=== PATIENT | male | born 1965 | race Hispanic/Latino ===

== ENCOUNTER 2022-11-14 13:07 | Emergency (ER) | payer BC, OTHER ==
[~2022-11-14] VITALS: Ht 165.1 cm; Wt 85.3 kg
[2022-11-14 13:47] LABS: HEMATOCRIT 37.9 % (42-54); MEAN CORPUSCULAR HEMOGLOBIN 31.1 pg (27.0-33.0); MEAN CORPUSCULAR HGB CONC 35.1 g/dL (32.0-36.0); MEAN CORPUSCULAR VOLUME 88.6 fL (79-99); PLATELET COUNT (AUTO) 220 K/uL (130-400); RED BLOOD CELL COUNT(AUTO) 4.28 MIL/uL (4.50-6.20); RED CELL DISTRIBUTION WIDTH 12.7 % (11.0-15.5); WHITE BLOOD COUNT (AUTO) 8.8 K/uL (4.8-10.8)
[2022-11-14 13:57] LABS: CREATININE 1.4 mg/dL (0.5-1.5); POTASSIUM 4.8 mmol/L (3.5-5.1)
[2022-11-14 14:01] LABS: ALBUMIN 3.9 g/dL (3.5-5.0)
[2022-11-14 14:53] LABS: BASOPHILS % (AUTO) 0.6 % (0.0-5.0); EOSINOPHILS % (AUTO) 5.2 % (0.0-8.0); LYMPHOCYTES % (AUTO) 37.9 % (21.0-51.0); MONOCYTES % (AUTO) 5.4 % (3.0-13.0); NEUTROPHILS % (AUTO) 50.7 % (40.0-77.0)
[2022-11-14 16:41] VITALS: BP 114/74
[2022-11-14] MEDS ORDERED: DICL20GE TP (18:05)
== END 2022-11-14 18:28 | disposition home or self-care (01) ==
LOC: EDH 13:07
DX: M25.519 Pain in unspecified shoulder (principal); M79.10 Myalgia, unspecified site; E11.9 Type 2 diabetes mellitus without complications; E78.00 Pure hypercholesterolemia, unspecified; I10 Essential (primary) hypertension; Z88.8 Allergy status to other drugs, medicaments and biological substances; Z95.1 Presence of aortocoronary bypass graft
CPT/HCPCS: 36415; 80053; 84484; 85025; 93005

== ENCOUNTER → 2022-11-24 | Outpatient (CLI) | payer OTHER ==
[~2022-11-24] MED LIST: DICL20GE TP
[2022-11-24 13:19] LABS: CREATININE 1.5 mg/dL (0.5-1.5); POTASSIUM 4.4 mmol/L (3.5-5.1)
== END | disposition home or self-care (01) ==
LOC: LAB 10:12
PROVIDERS: ATTEND Internal Medicine Cardiovascular Disease
DX: R07.9 Chest pain, unspecified (principal)
CPT/HCPCS: 36415; 80048; 80061

== ENCOUNTER → 2022-11-28 | Outpatient (CLI) | payer OTHER ==
[~2022-11-28] MED LIST changes: +ASPI-1197 PO; +ATOR40TA69 PO; +EZET10TA48 PO; +HYDR25TA PO; +LEVO50CA4 PO; +LOSA100T59 PO; +LOSA50TA64 PO; +METF-446 PO; +METO50TA18 PO; +MULT-1192 PO; +OMEP40CA21 PO; +REGADENOSON 0.4 MG/5 ML PF SYG IVP SCH; +SEMA2PEN SQ
== END | disposition home or self-care (01) ==
LOC: SHCH 09:03
PROVIDERS: ATTEND Internal Medicine Cardiovascular Disease
DX: R07.9 Chest pain, unspecified (principal); I25.9 Chronic ischemic heart disease, unspecified
CPT/HCPCS: 78452; 93017; J2785; A9500 ×2; 96374

== ENCOUNTER 2022-12-23 14:03 | Observation (INO) | payer OTHER ==
[~2022-12-23] VITALS: Ht 165.1 cm; Wt 86.5 kg
[~2022-12-23 14:03] MED LIST changes: -ASPI-1197 PO; -ATOR40TA69 PO; -EZET10TA48 PO; -HYDR25TA PO; -LEVO50CA4 PO; -LOSA100T59 PO; -LOSA50TA64 PO; -METF-446 PO; -METO50TA18 PO; -MULT-1192 PO; -OMEP40CA21 PO; -REGADENOSON 0.4 MG/5 ML PF SYG IVP SCH; -SEMA2PEN SQ
[2022-12-23 15:41] LABS: BASOPHILS % (AUTO) 0.5 % (0.0-5.0); EOSINOPHILS % (AUTO) 5.3 % (0.0-8.0); HEMATOCRIT 38.2 % (42-54); LYMPHOCYTES % (AUTO) 32.3 % (21.0-51.0); MEAN CORPUSCULAR HEMOGLOBIN 30.9 pg (27.0-33.0); MEAN CORPUSCULAR HGB CONC 35.1 g/dL (32.0-36.0); MEAN CORPUSCULAR VOLUME 88.2 fL (79-99); MONOCYTES % (AUTO) 6.4 % (3.0-13.0); NEUTROPHILS % (AUTO) 55.2 % (40.0-77.0); PLATELET COUNT (AUTO) 245 K/uL (130-400); RED BLOOD CELL COUNT(AUTO) 4.33 MIL/uL (4.50-6.20); RED CELL DISTRIBUTION WIDTH 12.4 % (11.0-15.5); WHITE BLOOD COUNT (AUTO) 7.8 K/uL (4.8-10.8)
[2022-12-23 15:51] LABS: APPEARANCE,URINE CLEAR (CLEAR); BILIRUBIN,URINE NEGATIVE (NEGATIVE); COLOR,URINE YELLOW (YELLOW); GLUCOSE, URINE (UA) NEGATIVE (NEGATIVE); KETONES,URINE NEGATIVE (NEGATIVE); LEUKOCYTE ESTERASE ,URINE NEGATIVE Leu/uL (NEGATIVE); NITRATE,URINE NEGATIVE (NEGATIVE); OCCULT BLOOD,URINE NEGATIVE (NEGATIVE); PROTEIN,URINE 20 mg/dL (NEGATIVE); UROBILINOGEN,URINE 0.2 mg/dL (0.2-1.0)
[2022-12-23 15:54] LABS: BACTERIA,URINE RARE /HPF (None Seen); MUCUS,URINE RARE LPF (None Seen); OTHER CASTS, URINE 1 /LPF (None Seen); RBC,URINE 0-1 /HPF (0-1); WBC,URINE 0-1 /HPF (0-1)
[2022-12-23 15:59] LABS: AMPHET/METH SCREEN,URINE NEGATIVE (NEGATIVE); BARBITURATE SCREEN, URINE NEGATIVE (NEGATIVE); BENZODIAZEPINES SCREEN,URINE NEGATIVE (NEGATIVE); CANNABINOID SCREEN,URINE NEGATIVE (NEGATIVE); COCAINE SCREEN,URINE NEGATIVE (NEGATIVE); OPIATE SCREEN,URINE NEGATIVE (NEGATIVE); PHENCYCLIDINE SCREEN,URINE NEGATIVE (NEGATIVE)
[2022-12-23 16:00] LABS: CREATININE 2.3 mg/dL (0.5-1.5); POTASSIUM 4.3 mmol/L (3.5-5.1)
[2022-12-23 16:10] LABS: ALBUMIN 4.1 g/dL (3.5-5.0); TOTAL PROTEIN, SERUM 7.6 g/dL (6.0-8.3)
[2022-12-23] MEDS ORDERED: 0.9%NACL 1000ML 1,000 ML IV ONE (17:00)
[2022-12-23] MEDS ORDERED: 0.9%NACL 1000ML 1,000 ML IV SCH (18:30)
[2022-12-23] MEDS ORDERED: DEXTROSE 50%-WATER 50 ML DISP.SYRIN IV PRN (18:30)
[2022-12-23] MEDS ORDERED: GLUCAGON 1MG KIT 1 MG ML IM PRN (18:30)
[2022-12-23] MEDS ORDERED: ONDANSETRON 4MG INJ IVP PRN (18:30)
[2022-12-23] MEDS ORDERED: ACETAMINOPHEN 325 MG TAB PO PRN (18:30)
[2022-12-23] MEDS: HEPARIN 5,000 UNIT VIAL SQ SCH (19:56)
[2022-12-23] MEDS: FAMOTIDINE 20MG VIAL IV SCH (20:58)
[2022-12-23] MEDS: INSULIN HUMULIN R 100 UNIT/ML 3ML SQ SCH (20:58)
[2022-12-23 21:15] VITALS: BP 131/69
[2022-12-23 21:57] LABS: CHLORIDE,URINE RANDOM 50 mmol/L (110-250); POTASSIUM,URINE RANDOM 63 mmol/L (25-125); SODIUM,URINE RANDOM 39 mmol/l (40-220)
[2022-12-24 00:07] VITALS: BP 111/69
[2022-12-24 04:21] VITALS: BP 106/76
[2022-12-24 05:13] LABS: HEMOGLOBIN A1C 7.8 % (4.0-6.0)
[2022-12-24] MEDS: HEPARIN 5,000 UNIT VIAL SQ SCH (05:16)
[2022-12-24] MEDS ORDERED: LOSA100T58 PO (07:29)
[2022-12-24] MEDS ORDERED: METF-446 PO ×2 (07:29→12:56)
[2022-12-24] MEDS ORDERED: OMEP40CA21 PO (07:29)
[2022-12-24] MEDS ORDERED: LEVO50CA4 PO (07:29)
[2022-12-24] MEDS ORDERED: METO50TA18 PO (07:29)
[2022-12-24] MEDS ORDERED: HYDR25TA PO (07:29)
[2022-12-24] MEDS ORDERED: EZET10TA48 PO (07:29)
[2022-12-24] MEDS ORDERED: ATOR40TA69 PO (07:29)
[2022-12-24] MEDS ORDERED: MULT-1192 PO (07:29)
[2022-12-24] MEDS: INSULIN HUMULIN R 100 UNIT/ML 3ML SQ SCH (07:30)
[2022-12-24 08:00] VITALS: BP 143/94
[2022-12-24] MEDS: FAMOTIDINE 20MG VIAL IV SCH (09:41)
[2022-12-24 12:00] VITALS: BP 97/53
[2022-12-24] MEDS ORDERED: ASPI-1197 PO (12:40)
[2022-12-24] MEDS ORDERED: SEMA2PEN SQ (12:40)
[2022-12-24 12:53] LABS: CREATININE 1.8 mg/dL (0.5-1.5); POTASSIUM 4.1 mmol/L (3.5-5.1)
[2022-12-24] MEDS ORDERED: LOSA50TA64 PO (12:56)
== END 2022-12-24 15:30 | disposition home or self-care (01) ==
LOC: EDH 14:03 → INTOOBSV 18:28 → EDHIP 18:28 → 4DH 21:05
PROVIDERS: ADMIT Internal Medicine; ATTEND Internal Medicine
DX: R55 Syncope and collapse (principal); N17.9 Acute kidney failure, unspecified; E86.0 Dehydration; E11.9 Type 2 diabetes mellitus without complications; I25.10 Atherosclerotic heart disease of native coronary artery without angina pectoris; I10 Essential (primary) hypertension; E78.00 Pure hypercholesterolemia, unspecified; E78.5 Hyperlipidemia, unspecified; M19.90 Unspecified osteoarthritis, unspecified site; E86.9 Volume depletion, unspecified; Z79.899 Other long term (current) drug therapy; Z95.1 Presence of aortocoronary bypass graft
CPT/HCPCS: 96374; 96372 ×2; 96361 ×2; 99285; 82436; 83735; 84484; 80053; 84300; 84133; 80305; 85025; 82948 ×4; 81001; 36415 ×2; 71045; 93880; 93005; 96376; 83036; 80048; J3490 ×2; J7030 ×2; J1644 ×2; J1815; G0378 ×3

== ENCOUNTER → 2023-01-14 | Outpatient (CLI) | payer OTHER ==
[~2023-01-14] MED LIST changes: +ASPI-1197 PO; +ATOR40TA69 PO; +EZET10TA48 PO; +LEVO50CA4 PO; +LOSA50TA64 PO; +METF-446 PO; +METO50TA18 PO; +MULT-1192 PO; +OMEP40CA21 PO; +SEMA2PEN SQ
== END | disposition home or self-care (01) ==
LOC: LAB 13:13
PROVIDERS: ATTEND Internal Medicine Cardiovascular Disease
DX: E78.5 Hyperlipidemia, unspecified (principal)
CPT/HCPCS: 36415; 83880